=== PATIENT | male | born 1970 | race Caucasian/White ===

== ENCOUNTER 2019-06-19 17:43 | Inpatient (IN) | payer BC, MEDICAID, OTHER ==
[~2019-06-19] VITALS: Ht 175.3 cm; Wt 87.1 kg
[~2019-06-19 17:43] MED LIST: AMIT10TA6 PO; HYDR-3965 PO
[2019-06-19] MEDS ORDERED: AMLO5TAB9 PO (17:51)
[2019-06-19 18:03] LABS: BASOPHILS % (AUTO) 1.2 % (0.0-2.0); EOSINOPHILS % (AUTO) 1.7 % (1.0-6.0); HEMATOCRIT 48.4 % (41-53); HEMOGLOBIN 16.7 g/dL (13.5-17.5); LYMPHOCYTES # (AUTO) 2.6 K/uL (1.0-4.8); LYMPHOCYTES % (AUTO) 33.9 % (22.0-44.0); MEAN CORPUSCULAR HEMOGLOBIN 30.1 pg (26.0-34.0); MEAN CORPUSCULAR HGB CONC 34.6 G/dL (31.0-37.0); MEAN CORPUSCULAR VOLUME 87 fL (80-100); MONOCYTES # (AUTO) 0.7 K/uL (0.1-1.0); MONOCYTES % (AUTO) 8.9 % (2.0-9.0); NEUTROPHILS # (AUTO) 4.2 K/uL (1.8-7.7); NEUTROPHILS % (AUTO) 54.3 % (40.0-70.0); PLATELET COUNT (AUTO) 292 K/uL (150-450); RED BLOOD CELL COUNT(AUTO) 5.56 MIL/uL (4.50-5.90); RED CELL DISTRIBUTION WIDTH 13.5 % (11.5-14.5)
[2019-06-19 18:15] LABS: ANION GAP 13 mmol/L (8-16); CALCIUM, TOTAL 8.3 mg/dL (8.8-10.5); CARBON DIOXIDE 21 mmol/L (22-29); CHLORIDE 100 mmol/L (98-107); CREATININE 1.08 mg/dL (0.60-1.30); GLOMERULAR FILTR. RATE CALC > 60 mL/min (>60); GLUCOSE,RANDOM 174 mg/dL (70-110); POTASSIUM 3.3 mmol/L (3.5-5.1); SODIUM SERUM 134 mmol/L (136-145); UREA NITROGEN, BLOOD 18 mg/dL (7-18)
[2019-06-19 18:21] LABS: ALANINE AMINOTRANSFERASE 70 U/L (12-78); ALBUMIN 3.9 g/dL (3.4-5.0); ALKALINE PHOSPHATASE 101 U/L (46-116); ASPARTATE AMINOTRANSFERASE 99 U/L (15-37); BILIRUBIN,TOTAL 0.6 mg/dL (0.1-1.0); TOTAL PROTEIN, SERUM 7.5 g/dL (6.4-8.2)
[2019-06-19] MEDS ORDERED: 0.9% SODIUM CHLORIDE 10 ML SYRINGE IVP PRN (21:00)
[2019-06-19] MEDS ORDERED: MORPHINE SULFATE 4 MG/ML SYRINGE IVP ONE (21:00)
[2019-06-19] MEDS ORDERED: LORazepam 2 MG/ML VIAL IVP ONE (21:00)
[2019-06-19] MEDS ORDERED: ACETAMINOPHEN 325 MG TABLET PO PRN (21:00)
[2019-06-19] MEDS ORDERED: ONDANSETRON HCL 4 MG/2 ML VIAL IVP ONE (21:00)
[2019-06-19] MEDS ORDERED: ChlordiazePOXIDE HCL 25 MG CAPSULE PO ONE (21:00)
[2019-06-19] MEDS ORDERED: ONDANSETRON HCL 4 MG/2 ML VIAL IVP PRN (21:00)
[2019-06-19] MEDS ORDERED: POTASSIUM CHLORIDE 20 MEQ ER TABLET PO ONE (21:30)
[2019-06-19] MEDS ORDERED: METOPROLOL TARTRATE 5 MG/5 ML VIAL IVP ONE (21:45)
[2019-06-20] MEDS ORDERED: ZOLPIDEM TARTRATE 10 MG TABLET PO PRN (00:45)
[2019-06-20] MEDS ORDERED: INSULIN LISPRO 100 UNITS/ML SQ PRN ×2 (00:45→01:15)
[2019-06-20] MEDS ORDERED: NITROGLYCERIN 2% (1 GM=INCH) PACKET TP PRN (00:45)
[2019-06-20] MEDS ORDERED: GLUCAGON,HUMAN RECOMBINANT 1 MG VIAL IM PRN (00:45)
[2019-06-20] MEDS ORDERED: NITROGLYCERIN 0.4 MG SUBLINGUAL TABLET #25 SL PRN (00:45)
[2019-06-20] MEDS ORDERED: HydrALAZINE HCL 20 MG/ML VIAL IVP PRN ×2 (00:45→12:45)
[2019-06-20] MEDS ORDERED: ChlordiazePOXIDE HCL 25 MG CAPSULE PO PRN ×2 (00:45→11:00)
[2019-06-20] MEDS ORDERED: ACETAMINOPHEN 325 MG TABLET PO PRN ×2 (00:45→11:00)
[2019-06-20] MEDS ORDERED: POTASSIUM CHLORIDE 20 MEQ ER TABLET PO PRN (01:00)
[2019-06-20] MEDS ORDERED: POTASSIUM CHL 10 MEQ/WATER 50 ML IV PRN (01:00)
[2019-06-20] MEDS ORDERED: DEXTROSE 50%-WATER 25 GM/50 ML SYG IVP PRN (01:15)
[2019-06-20] MEDS: MORPHINE SULFATE 2 MG/ML SYRINGE IVP PRN ×4 (01:25→21:11)
[2019-06-20] MEDS ORDERED: HydrALAZINE HCL 25 MG TABLET PO PRN (01:30)
[2019-06-20 05:20] VITALS: BP 146/96
[2019-06-20 07:08] VITALS: BP 127/93
[2019-06-20 07:52] LABS: CHOL/HDL RATIO 3.1 (4.2-7.3); CHOLESTEROL 145 mg/dL (131-200); HDL CHOLESTEROL 47 mg/dL (40-60); TRIGLYCERIDES 521 mg/dL (15-150)
[2019-06-20] MEDS: FOLIC ACID 1 MG TABLET PO SCH (08:21)
[2019-06-20] MEDS: MULTIVITAMINS, THERAPEUTIC TABLET PO SCH (08:21)
[2019-06-20] MEDS: ASPIRIN 81 MG CHEWABLE TABLET PO SCH (08:22)
[2019-06-20] MEDS: THIAMINE HCL 100 MG/ML 2ML VIAL IM SCH (08:23)
[2019-06-20] MEDS ORDERED: AmLODIPine BESYLATE 5 MG TABLET PO SCH (09:00)
[2019-06-20] MEDS ORDERED: FAMOTIDINE 10 MG/ML 2 ML VIAL IVP SCH (09:00)
[2019-06-20] MEDS ORDERED: DOCUSATE SODIUM 100 MG CAPSULE PO SCH (09:00)
[2019-06-20] MEDS ORDERED: DOCUSATE SODIUM 100 MG CAPSULE PO PRN (11:00)
[2019-06-20] MEDS ORDERED: ONDANSETRON HCL 4 MG/2 ML VIAL IVP PRN (11:00)
[2019-06-20] MEDS ORDERED: ALBUTEROL SULFATE 2.5 MG/0.5 ML NEB SOLUTION NEB PRN (11:00)
[2019-06-20] MEDS ORDERED: IPRATROPIUM BROMIDE 0.5 MG/2.5 ML NEB SOLUTION NEB PRN (11:00)
[2019-06-20 11:20] VITALS: BP 150/97
[2019-06-20 12:01] LABS: ANION GAP 10 mmol/L (8-16); CALCIUM, TOTAL 8.7 mg/dL (8.8-10.5); CARBON DIOXIDE 20 mmol/L (22-29); CHLORIDE 100 mmol/L (98-107); CREATININE 1.02 mg/dL (0.60-1.30); GLOMERULAR FILTR. RATE CALC > 60 mL/min (>60); GLUCOSE,RANDOM 135 mg/dL (70-110); POTASSIUM 4.4 mmol/L (3.5-5.1); SODIUM SERUM 130 mmol/L (136-145); UREA NITROGEN, BLOOD 17 mg/dL (7-18)
[2019-06-20 12:15] LABS: GLUCOMETER DEV NAME(LOC) 5S.2A; GLUCOSE,POINT OF CARE 108 MG/DL (70-110)
[2019-06-20 16:05] LABS: GLUCOMETER DEV NAME(LOC) 5S.1; GLUCOSE,POINT OF CARE 125 MG/DL (70-110)
[2019-06-20 17:07] VITALS: BP 154/104
[2019-06-20 17:10] VITALS: BP 151/106
[2019-06-20] MEDS: GEMFIBROZIL 600 MG TABLET PO SCH (17:39)
[2019-06-20 19:53] VITALS: BP 159/108
[2019-06-20] MEDS: FAMOTIDINE 10 MG/ML 2 ML VIAL IVP SCH (20:16)
[2019-06-20] MEDS: METOPROLOL TARTRATE 25 MG TABLET PO SCH (20:17)
[2019-06-21 00:02] VITALS: BP 150/97
[2019-06-21] MEDS: GEMFIBROZIL 600 MG TABLET PO SCH ×2 (06:10→17:41)
[2019-06-21 06:17] VITALS: BP 153/99
[2019-06-21 06:44] LABS: EOSINOPHILS % (AUTO) 5.9 % (1.0-6.0); HEMATOCRIT 48.4 % (41-53); HEMOGLOBIN 16.6 g/dL (13.5-17.5); LYMPHOCYTES # (AUTO) 2.1 K/uL (1.0-4.8); LYMPHOCYTES % (AUTO) 28.8 % (22.0-44.0); MEAN CORPUSCULAR HGB CONC 34.3 G/dL (31.0-37.0); MEAN CORPUSCULAR VOLUME 87 fL (80-100); MONOCYTES # (AUTO) 0.5 K/uL (0.1-1.0); MONOCYTES % (AUTO) 7.2 % (2.0-9.0); NEUTROPHILS # (AUTO) 4.1 K/uL (1.8-7.7); NEUTROPHILS % (AUTO) 57.1 % (40.0-70.0); PLATELET COUNT (AUTO) 213 K/uL (150-450); RED BLOOD CELL COUNT(AUTO) 5.54 MIL/uL (4.50-5.90); RED CELL DISTRIBUTION WIDTH 13.5 % (11.5-14.5)
[2019-06-21] MEDS ORDERED: ChlordiazePOXIDE HCL 25 MG CAPSULE PO PRN (07:00)
[2019-06-21 07:06] LABS: ANION GAP 10 mmol/L (8-16); CALCIUM, TOTAL 8.9 mg/dL (8.8-10.5); CARBON DIOXIDE 23 mmol/L (22-29); CHLORIDE 101 mmol/L (98-107); CHOL/HDL RATIO 2.7 (4.2-7.3); CHOLESTEROL 127 mg/dL (131-200); CREATININE 1.11 mg/dL (0.60-1.30); GLOMERULAR FILTR. RATE CALC > 60 mL/min (>60); GLUCOSE,RANDOM 119 mg/dL (70-110); HDL CHOLESTEROL 47 mg/dL (40-60); LDL CHOL (CALC.) 36 mg/dL (0-130); POTASSIUM 3.6 mmol/L (3.5-5.1); SODIUM SERUM 134 mmol/L (136-145); TRIGLYCERIDES 222 mg/dL (15-150); UREA NITROGEN, BLOOD 12 mg/dL (7-18)
[2019-06-21 08:15] VITALS: BP 145/100
[2019-06-21] MEDS ORDERED: ChlordiazePOXIDE HCL 25 MG CAPSULE PO SCH (09:00)
[2019-06-21] MEDS: ASPIRIN 81 MG CHEWABLE TABLET PO SCH (09:52)
[2019-06-21] MEDS: FOLIC ACID 1 MG TABLET PO SCH (09:52)
[2019-06-21] MEDS: METOPROLOL TARTRATE 25 MG TABLET PO SCH (09:52)
[2019-06-21] MEDS: MULTIVITAMINS, THERAPEUTIC TABLET PO SCH (09:52)
[2019-06-21] MEDS: THIAMINE HCL 100 MG/ML 2ML VIAL IM SCH (10:03)
[2019-06-21] MEDS: FAMOTIDINE 10 MG/ML 2 ML VIAL IVP SCH (10:03)
[2019-06-21 11:08] VITALS: BP 140/94
[2019-06-21] MEDS: MORPHINE SULFATE 2 MG/ML SYRINGE IVP PRN (12:08)
[2019-06-21 16:10] VITALS: BP 136/89
[2019-06-21] MEDS ORDERED: FOLI1 PO (17:56)
[2019-06-21] MEDS ORDERED: LIB25 PO (17:56)
[2019-06-21] MEDS ORDERED: ASPI81 PO (17:56)
[2019-06-21] MEDS ORDERED: GEMF600T5 PO (17:56)
[2019-06-21] MEDS ORDERED: METO25 PO (17:57)
[2019-06-21] MEDS ORDERED: MULT-1203 PO (17:59)
[2019-06-21] MEDS ORDERED: THIA100T67 PO (18:02)
[2019-06-21 18:11] LABS: GLUCOMETER DEV NAME(LOC) 5N.1; GLUCOSE,POINT OF CARE 116 MG/DL (70-110)
[2019-06-21 18:12] LABS: GLUCOMETER DEV NAME(LOC) 5N.1; GLUCOSE,POINT OF CARE 113 MG/DL (70-110)
[2019-06-21 18:12] LABS: GLUCOMETER DEV NAME(LOC) 5N.1; GLUCOSE,POINT OF CARE 133 MG/DL (70-110)
[2019-06-21 18:12] LABS: GLUCOMETER DEV NAME(LOC) 5N.1; GLUCOSE,POINT OF CARE 127 MG/DL (70-110)
[2019-06-21 20:11] LABS: GLUCOMETER DEV NAME(LOC) 5S.2A; GLUCOSE,POINT OF CARE 119 MG/DL (70-110)
[2019-06-23] MEDS ORDERED: ChlordiazePOXIDE HCL 10 MG CAPSULE PO PRN (07:00)
[2019-06-23] MEDS ORDERED: ChlordiazePOXIDE HCL 10 MG CAPSULE PO SCH (09:00)
[2019-06-24] MEDS ORDERED: ChlordiazePOXIDE HCL 10 MG CAPSULE PO PRN (07:00)
== END 2019-06-21 18:39 | disposition home or self-care (01) | DRG 198 ==
LOC: EMS 17:44 → 5S 21:30
PROVIDERS: ADMIT Internal Medicine; ATTEND Internal Medicine
DX: I24.9 Acute ischemic heart disease, unspecified (principal); K75.9 Inflammatory liver disease, unspecified; E78.1 Pure hyperglyceridemia; I10 Essential (primary) hypertension; R00.0 Tachycardia, unspecified; E87.6 Hypokalemia; G43.909 Migraine, unspecified, not intractable, without status migrainosus; N20.0 Calculus of kidney; Y90.9 Presence of alcohol in blood, level not specified; Z87.442 Personal history of urinary calculi; Z82.49 Family history of ischemic heart disease and other diseases of the circulatory system; F10.239 Alcohol dependence with withdrawal, unspecified
CPT/HCPCS: 83036; 83735; 93005; 93306; 96374; 96375; G0480; J0360; J2060; J2270; J2405; J3411; J3490

== ENCOUNTER 2020-10-24 18:08 | Emergency (ER) | payer OTHER ==
[~2020-10-24] VITALS: Ht 175.3 cm; Wt 81.8 kg
[~2020-10-24 18:08] MED LIST changes: -AMIT10TA6 PO; +AMLO-257 PO; +ASPI-728 PO; +FOLI-130 PO; +GEMF600T5 PO; -HYDR-3965 PO; +LIB25 PO; +METO25 PO; +MULT-1203 PO; +THIAMINE HCL100 MG PO
[2020-10-24 20:11] VITALS: BP 140/88
== END 2020-10-24 20:43 | disposition left against medical advice (07) ==
LOC: EMS 18:08
DX: R10.31 Right lower quadrant pain (principal); Z53.21 Procedure and treatment not carried out due to patient leaving prior to being seen by health care provider